=== PATIENT | female | born 1985 | race Asian ===

== ENCOUNTER 2019-02-05 19:41 | Emergency (ER) | payer SELFPAY ==
[~2019-02-05] VITALS: Ht 160 cm; Wt 56.0 kg
[2019-02-05 20:40] LABS: BASOPHILS % (AUTO) 0.4 % (0.0-2.0); EOSINOPHILS % (AUTO) 0.1 % (1.0-6.0); HEMATOCRIT 38.1 % (36-46); HEMOGLOBIN 12.4 g/dL (12.0-16.0); LYMPHOCYTES # (AUTO) 2.3 K/uL (1.0-4.8); LYMPHOCYTES % (AUTO) 15.8 % (22.0-44.0); MEAN CORPUSCULAR HEMOGLOBIN 26.1 pg (26.0-34.0); MEAN CORPUSCULAR HGB CONC 32.5 G/dL (31.0-37.0); MEAN CORPUSCULAR VOLUME 80 fL (80-100); MONOCYTES # (AUTO) 0.6 K/uL (0.1-1.0); NEUTROPHILS # (AUTO) 11.5 K/uL (1.8-7.7); NEUTROPHILS % (AUTO) 79.7 % (40.0-70.0); PLATELET COUNT (AUTO) 337 K/uL (150-450); RED BLOOD CELL COUNT(AUTO) 4.75 MIL/uL (4.00-5.20); RED CELL DISTRIBUTION WIDTH 14.2 % (11.5-14.5)
[2019-02-05 20:54] LABS: ANION GAP 13 mmol/L (8-16); CALCIUM, TOTAL 9.8 mg/dL (8.8-10.5); CARBON DIOXIDE 20 mmol/L (22-29); CHLORIDE 103 mmol/L (98-107); GLOMERULAR FILTR. RATE CALC > 60 mL/min (>60); GLUCOSE,RANDOM 153 mg/dL (70-110); POTASSIUM 3.2 mmol/L (3.5-5.1); SODIUM SERUM 136 mmol/L (136-145); UREA NITROGEN, BLOOD 13 mg/dL (7-18)
[2019-02-05 21:08] LABS: ALANINE AMINOTRANSFERASE 12 U/L (12-78); ALBUMIN 3.9 g/dL (3.4-5.0); ALKALINE PHOSPHATASE 73 U/L (46-116); ASPARTATE AMINOTRANSFERASE 18 U/L (15-37); BILIRUBIN,TOTAL 0.4 mg/dL (0.1-1.0); HCG,QUANTITATIVE < 1 mIU/mL (0-6)
[2019-02-05 21:23] LABS: APPEARANCE,URINE CLOUDY (CLEAR); BILIRUBIN,URINE NEGATIVE (NEGATIVE); GLUCOSE, URINE (UA) 100 mg/dL (NEGATIVE); KETONES,URINE 15 mg/dL (NEGATIVE); LEUKOCYTE ESTERASE ,URINE TRACE (NEGATIVE); NITRATE,URINE NEGATIVE (NEGATIVE); OCCULT BLOOD,URINE LARGE (NEGATIVE); PROTEIN,URINE POS 1+ (NEGATIVE); UROBILINOGEN,URINE 0.2 mg/dL (<=1.0)
[2019-02-05 21:34] LABS: RBC,URINE >100 /HPF (0-2)
[2019-02-05 21:35] LABS: BACTERIA,URINE Few /HPF (None Seen); SQUAMOUS EPITHELIAL CELL,UR Few /LPF (None Seen)
[2019-02-05 21:36] LABS: CALCIUM OXALATE CRYSTALS,UR Few /LPF (None Seen)
[2019-02-05] MEDS ORDERED: SODIUM CHLORIDE 0.9% 1,000 ML IV ONE (22:30)
[2019-02-05] MEDS ORDERED: KETOROLAC TROMETHAMINE 30 MG/ML VIAL IVP ONE (22:30)
[2019-02-05 22:44] LABS: LIPASE 206 U/L (73-393)
[2019-02-05] MEDS ORDERED: MORPHINE SULFATE 4 MG/ML SYRINGE IVP ONE (23:15)
[2019-02-06] MEDS ORDERED: KETOROLAC TROMETHAMINE 30 MG/ML VIAL IVP ONE (01:00)
[2019-02-06 01:44] VITALS: BP 116/74
== END 2019-02-06 01:00 | disposition home or self-care (01) ==
LOC: EMS 19:43
DX: N13.2 Hydronephrosis with renal and ureteral calculous obstruction (principal); D72.829 Elevated white blood cell count, unspecified; N83.202 Unspecified ovarian cyst, left side
CPT/HCPCS: 36415; 74176; 76856; 80053; 81001; 81002; 83690; 84702; 85025; 96361; 96374; 96375; 99284; J1885; J2270; J7030

== ENCOUNTER 2019-02-11 15:56 | Emergency (ER) | payer MEDICAID ==
[~2019-02-11] VITALS: Ht 160 cm; Wt 56.0 kg
[2019-02-11] MEDS ORDERED: ACET-2247 PO (15:59)
[2019-02-11] MEDS ORDERED: KETOROLAC TROMETHAMINE 30 MG/ML VIAL IVP ONE (16:15)
[2019-02-11] MEDS ORDERED: SODIUM CHLORIDE 0.9% 1,000 ML IV ONE (16:15)
[2019-02-11 17:20] LABS: BASOPHILS % (AUTO) 1.1 % (0.0-2.0); EOSINOPHILS % (AUTO) 0.7 % (1.0-6.0); HEMATOCRIT 39.7 % (36-46); HEMOGLOBIN 12.9 g/dL (12.0-16.0); LYMPHOCYTES # (AUTO) 1.9 K/uL (1.0-4.8); LYMPHOCYTES % (AUTO) 22.1 % (22.0-44.0); MEAN CORPUSCULAR HEMOGLOBIN 25.8 pg (26.0-34.0); MEAN CORPUSCULAR HGB CONC 32.4 G/dL (31.0-37.0); MEAN CORPUSCULAR VOLUME 80 fL (80-100); MONOCYTES # (AUTO) 0.6 K/uL (0.1-1.0); MONOCYTES % (AUTO) 6.9 % (2.0-9.0); NEUTROPHILS % (AUTO) 69.2 % (40.0-70.0); PLATELET COUNT (AUTO) 312 K/uL (150-450); RED BLOOD CELL COUNT(AUTO) 4.98 MIL/uL (4.00-5.20); RED CELL DISTRIBUTION WIDTH 14.2 % (11.5-14.5)
[2019-02-11 17:30] LABS: BILIRUBIN,URINE NEGATIVE (NEGATIVE); GLUCOSE, URINE (UA) NEGATIVE (NEGATIVE); KETONES,URINE NEGATIVE (NEGATIVE); NITRATE,URINE NEGATIVE (NEGATIVE); PH,URINE 6.5 (5.0-8.0); PROTEIN,URINE NEGATIVE (NEGATIVE); UROBILINOGEN,URINE 0.2 mg/dL (<=1.0)
[2019-02-11 17:35] LABS: ANION GAP 9 mmol/L (8-16); CALCIUM, TOTAL 9.6 mg/dL (8.8-10.5); CARBON DIOXIDE 28 mmol/L (22-29); CHLORIDE 101 mmol/L (98-107); CREATININE 0.82 mg/dL (0.60-1.30); GLOMERULAR FILTR. RATE CALC > 60 mL/min (>60); GLUCOSE,RANDOM 92 mg/dL (70-110); POTASSIUM 3.1 mmol/L (3.5-5.1); SODIUM SERUM 138 mmol/L (136-145); UREA NITROGEN, BLOOD 9 mg/dL (7-18)
[2019-02-11 17:36] LABS: APPEARANCE,URINE HAZY (CLEAR); LEUKOCYTE ESTERASE ,URINE SMALL (NEGATIVE); OCCULT BLOOD,URINE MODERATE (NEGATIVE)
[2019-02-11 17:37] LABS: BACTERIA,URINE None Seen /HPF (None Seen); SQUAMOUS EPITHELIAL CELL,UR Few /LPF (None Seen)
[2019-02-11] MEDS ORDERED: POTASSIUM CHLORIDE 20 MEQ ER TABLET PO ONE (18:30)
[2019-02-11 19:15] VITALS: BP 121/79
== END 2019-02-11 19:19 | disposition home or self-care (01) ==
LOC: EMS 15:58
DX: N39.0 Urinary tract infection, site not specified (principal); E87.6 Hypokalemia; N23 Unspecified renal colic; Z79.899 Other long term (current) drug therapy
CPT/HCPCS: 36415; 76770; 80048; 81001; 84702; 85025; 96374; 99284; J1885; J7030

== ENCOUNTER 2019-08-07 15:55 | Emergency (ER) | payer MEDICAID, OTHER ==
[~2019-08-07] VITALS: Ht 160 cm; Wt 56.8 kg
[~2019-08-07 15:55] MED LIST: ACET-2247 PO
[2019-08-07 16:37] LABS: RAPID GROUP A STREP NEGATIVE (NEGATIVE)
[2019-08-07 16:46] LABS: INFLUENZA TYPE A NEGATIVE FOR TYPE A (NEGATIVE); INFLUENZA TYPE B NEGATIVE FOR TYPE B (NEGATIVE)
[2019-08-07] MEDS ORDERED: METOCLOPRAMIDE HCL 5 MG/ML 2 ML VIAL IVP ONE (19:15)
[2019-08-07] MEDS ORDERED: KETOROLAC TROMETHAMINE 30 MG/ML VIAL IVP ONE (19:15)
[2019-08-07] MEDS ORDERED: SODIUM CHLORIDE 0.9% 1,000 ML, SODIUM CHLORIDE 0.9% 1,000 ML IV ONE (19:15)
[2019-08-07 21:30] VITALS: BP 110/78
== END 2019-08-07 21:59 | disposition home or self-care (01) ==
LOC: EMS 16:01
DX: J02.8 Acute pharyngitis due to other specified organisms (principal); B97.89 Other viral agents as the cause of diseases classified elsewhere
CPT/HCPCS: 84703; 87430; 87804; 96374; 96375; 99283; J1885; J2765

== ENCOUNTER 2022-04-26 20:22 | Emergency (ER) | payer OTHER ==
[~2022-04-26] VITALS: Ht 160 cm; Wt 64.5 kg
[2022-04-26 20:38] VITALS: BP 115/77
== END 2022-04-26 22:43 | disposition left against medical advice (07) ==
LOC: EMS 20:23
DX: Z53.21 Procedure and treatment not carried out due to patient leaving prior to being seen by health care provider (principal)
CPT/HCPCS: 93005

== ENCOUNTER 2023-01-05 18:38 | Emergency (ER) | payer OTHER ==
[~2023-01-05] VITALS: Ht 160 cm; Wt 63.6 kg
[2023-01-05 20:52] LABS: BASOPHILS % (AUTO) 1.1 % (0.0-2.0); EOSINOPHILS % (AUTO) 1.1 % (1.0-6.0); HEMATOCRIT 38.6 % (36-46); HEMOGLOBIN 12.2 g/dL (12.0-16.0); LYMPHOCYTES # (AUTO) 1.9 K/uL (1.0-4.8); LYMPHOCYTES % (AUTO) 25.4 % (22.0-44.0); MEAN CORPUSCULAR HEMOGLOBIN 24.3 pg (26.0-34.0); MEAN CORPUSCULAR HGB CONC 31.7 G/dL (31.0-37.0); MEAN CORPUSCULAR VOLUME 77 fL (80-100); MONOCYTES # (AUTO) 0.6 K/uL (0.1-1.0); MONOCYTES % (AUTO) 7.5 % (2.0-9.0); NEUTROPHILS # (AUTO) 4.8 K/uL (1.8-7.7); NEUTROPHILS % (AUTO) 64.9 % (40.0-70.0); PLATELET COUNT (AUTO) 292 K/uL (150-450); RED BLOOD CELL COUNT(AUTO) 5.02 MIL/uL (4.00-5.20)
[2023-01-05 21:04] LABS: ANION GAP 12 mmol/L (8-16); CALCIUM, TOTAL 9.5 mg/dL (8.8-10.5); CARBON DIOXIDE 27 mmol/L (22-29); CHLORIDE 102 mmol/L (98-107); CREATININE 0.53 mg/dL (0.60-1.30); GLOMERULAR FILTR. RATE CALC > 60 mL/min (>60); GLUCOSE,RANDOM 94 mg/dL (70-110); POTASSIUM 3.4 mmol/L (3.5-5.1); SODIUM SERUM 141 mmol/L (136-145)
[2023-01-05 21:09] LABS: ALANINE AMINOTRANSFERASE 14 U/L (12-78); ALBUMIN 3.8 g/dL (3.4-5.0); ALKALINE PHOSPHATASE 72 U/L (46-116); ASPARTATE AMINOTRANSFERASE 18 U/L (15-37); BILIRUBIN,TOTAL 0.4 mg/dL (0.1-1.0); LIPASE 167 U/L (73-393); TOTAL PROTEIN, SERUM 7.7 g/dL (6.4-8.2)
[2023-01-05] MEDS ORDERED: FAMOTIDINE 20 MG TABLET PO ONE (21:15)
[2023-01-05] MEDS ORDERED: MAG HYDROX/AL HYDROX/SIMETH 30 ML SUSP UDCUP PO ONE (21:15)
[2023-01-05] MEDS ORDERED: ACETAMINOPHEN 325 MG TABLET PO ONE (21:15)
[2023-01-05] MEDS ORDERED: OMEP20 PO (22:02)
[2023-01-05 22:24] VITALS: BP 121/68
== END 2023-01-05 22:56 | disposition home or self-care (01) ==
LOC: EMS 18:39
DX: K21.9 Gastro-esophageal reflux disease without esophagitis (principal); Z98.890 Other specified postprocedural states
CPT/HCPCS: 80053; 83690; 84484; 84703; 85025; 93005; 99284

== ENCOUNTER 2023-06-16 16:22 | Emergency (ER) | payer OTHER ==
[~2023-06-16] VITALS: Ht 154.9 cm; Wt 59.1 kg
[~2023-06-16 16:22] MED LIST changes: +OMEP20 PO
[2023-06-16 16:37] VITALS: TEMP 98
[2023-06-16 16:51] VITALS: BP 111/73; PULSE 84; RESP 18
[2023-06-16 17:46] LABS: APPEARANCE,URINE CLEAR (CLEAR); BILIRUBIN,URINE NEGATIVE (NEGATIVE); COLOR,URINE COLORLESS (YELLOW); GLUCOSE, URINE (UA) NEGATIVE (NEGATIVE); KETONES,URINE NEGATIVE (NEGATIVE); LEUKOCYTE ESTERASE ,URINE MODERATE (NEGATIVE); NITRATE,URINE NEGATIVE (NEGATIVE); OCCULT BLOOD,URINE TRACE (NEGATIVE); PROTEIN,URINE NEGATIVE (NEGATIVE); UROBILINOGEN,URINE <=1.0 mg/dL (<=1.0)
[2023-06-16 17:50] LABS: HCG,QUAL URINE NEGATIVE (NEGATIVE)
[2023-06-16 18:16] LABS: BACTERIA,URINE Few /HPF (None Seen); SQUAMOUS EPITHELIAL CELL,UR Few /LPF (None Seen)
[2023-06-16] MEDS ORDERED: PHEN-846 PO (18:45)
[2023-06-16] MEDS ORDERED: NITR-75 PO (18:45)
== END 2023-06-16 19:14 | disposition home or self-care (01) ==
LOC: EMS 16:54
DX: N39.0 Urinary tract infection, site not specified (principal); Z87.442 Personal history of urinary calculi; Z98.890 Other specified postprocedural states
CPT/HCPCS: 81001; 84703; 87086; 87186; 99283

== ENCOUNTER 2023-06-18 15:56 | Emergency (ER) | payer OTHER ==
[~2023-06-18] VITALS: Ht 157.5 cm; Wt 68.2 kg
[~2023-06-18 15:56] MED LIST changes: +NITR-75 PO; +PHEN-846 PO
[2023-06-18 16:08] VITALS: TEMP 98.3
[2023-06-18] MEDS ORDERED: CEPH-558 PO (16:26)
[2023-06-18] MEDS ORDERED: CEPHALEXIN MONOHYDRATE 500 MG CAPSULE PO ONE (16:30)
[2023-06-18 16:52] VITALS: BP 105/67; PULSE 78; RESP 16
== END 2023-06-18 17:06 | disposition home or self-care (01) ==
LOC: EMS 16:06
DX: L25.8 Unspecified contact dermatitis due to other agents (principal); T36.8X5A Adverse effect of other systemic antibiotics, initial encounter; N39.0 Urinary tract infection, site not specified; Z98.890 Other specified postprocedural states; Y92.89 Other specified places as the place of occurrence of the external cause
CPT/HCPCS: 99283